=== PATIENT | male | born 1990 | race Two or more races ===

== ENCOUNTER 2022-08-05 08:33 | Emergency (ER) | payer BC, OTHER ==
[~2022-08-05] VITALS: Ht 177.8 cm; Wt 88.0 kg
--- NOTE | 2022-08-05 08:40 | NUR ---
RECEIVED PT 31 yrs male from home c/o lt side abdminale pain with n/v skin warm and dry to touch hx kidney stone
--- NOTE | 2022-08-05 08:46 | NUR ---
URINE SAMPLE COLLECTED AND SENT TO LAB
--- NOTE | 2022-08-05 08:50 | NUR ---
INSERTED ANGO CATHETER G 18 BLOOD DROW AND SENT TO LAB
[2022-08-05] MEDS ORDERED: IV NS 0.9% 1,000 ML BAG IV ONE (09:00)
[2022-08-05] MEDS ORDERED: KETOROLAC TROMETHAMINE INJ 30 MG/ML VIAL IV ONE (09:00)
[2022-08-05] MEDS ORDERED: KETOROLAC TROMETHAMINE INJ 30 MG/ML VIAL ONE (09:01)
--- NOTE | 2022-08-05 09:10 | NUR ---
SEEN BY DR. LAW ROME WITH PT PLAN OF CARE
[2022-08-05 09:18] LABS: BASOPHILS # (AUTO) 0.1 K/uL (0.0-0.2); BASOPHILS % (AUTO) 1.1 % (0.0-2.0); EOSINOPHILS % (AUTO) 1.8 % (0.0-6.0); HEMATOCRIT 42 % (39-51); HEMOGLOBIN 14.2 g/dL (13.5-17.5); LYMPHOCYTES # (AUTO) 2.1 K/uL (0.8-4.8); LYMPHOCYTES % (AUTO) 33.2 % (20.0-44.0); MEAN CORPUSCULAR HGB CONC 34 g/dl (31.0-36.0); MEAN CORPUSCULAR VOLUME 89 fL (80-96); MONOCYTES # (AUTO) 0.5 K/uL (0.1-1.30); MONOCYTES % (AUTO) 8.4 % (2.0-12.0); NEUTROPHILS # (AUTO) 3.5 K/uL (1.8-8.9); NEUTROPHILS % (AUTO) 55.5 % (43.0-81.0); PLATELET COUNT (AUTO) 227 K/uL (150-450); RED BLOOD CELL COUNT(AUTO) 4.66 MIL/uL (4.5-6.0); WHITE BLOOD COUNT (AUTO) 6.3 K/uL (4.3-11.0)
[2022-08-05 09:21] LABS: BILIRUBIN,URINE NEGATIVE (NEGATIVE); COLOR,URINE YELLOW (YELLOW); LEUKOCYTE ESTERASE ,URINE NEGATIVE (NEGATIVE); NITRITE, URINE NEGATIVE (NEGATIVE); PH,URINE 6.5 (5.0-8.0); PROTEIN,URINE NEGATIVE (NEGATIVE); UGLUCOSE NEGATIVE (NEGATIVE)
[2022-08-05 09:23] LABS: WBC,URINE 0-2 /HPF (0-3)
[2022-08-05 09:24] LABS: BACTERIA,URINE Rare /HPF (None Seen); SQUAMOUS EPITHELIAL CELL,UR Few /HPF (None Seen)
[2022-08-05 09:30] LABS: CALCIUM, SERUM 9.1 mg/dL (8.5-10.1); CREATININE 1.2 mg/dL (0.6-1.3); POTASSIUM 4.1 mmol/L (3.5-5.1)
[2022-08-05 09:36] LABS: ALBUMIN 3.9 g/dL (3.4-5.0); BILIRUBIN,DIRECT 0.2 mg/dL (0.0-0.2); BILIRUBIN,TOTAL 0.7 mg/dL (0.2-1.0); TOTAL PROTEIN, SERUM 7.5 g/dL (6.4-8.2)
--- NOTE | 2022-08-05 09:58 | NUR ---
RESTING AND COMFORTABLE AT THIS TIME
[2022-08-05] MEDS ORDERED: TAMS-12 PO (10:23)
[2022-08-05] MEDS ORDERED: KETO10TA2 PO (10:23)
[2022-08-05] MEDS ORDERED: ONDA4TAB11 PO (10:23)
--- NOTE | 2022-08-05 10:40 | NUR ---
AT BED SIDE SPOOK WITH PT PLAN OF care
--- NOTE | 2022-08-05 10:50 | NUR ---
IV removed. Catheter intact and site benign. Pressure and 4x4 applied to site. No bleeding noted.
--- NOTE | 2022-08-05 10:52 | NUR ---
Patient discharged to home in stable condition. Written and verbal after care instructions given. Patient verbalizes understanding of instruction.
[2022-08-05 11:02] VITALS: BP 116/72
== END 2022-08-05 11:04 | disposition home or self-care (01) ==
LOC: ER 08:38
DX: N23 Unspecified renal colic (principal); Z87.442 Personal history of urinary calculi
CPT/HCPCS: 99285; 74176; 96374; 96361; 85025; 80048; 83690; 80076; 81001; 36415; J1885; J7030

== ENCOUNTER 2024-10-09 12:28 | Emergency (ER) | payer OTHER ==
[~2024-10-09] VITALS: Ht 177.8 cm; Wt 82.6 kg
[~2024-10-09 12:28] MED LIST: KETO10TA2 PO; ONDA4TAB11 PO; TAMS-12 PO
[2024-10-09 12:34] VITALS: TEMP 98
[2024-10-09 12:56] LABS: APPEARANCE,URINE CLEAR (CLEAR); BLOOD, URINE 3+ Ery/uL (NEGATIVE); LEUKOCYTE ESTERASE ,URINE NEGATIVE (NEGATIVE); NITRITE, URINE NEGATIVE (NEGATIVE); UGLUCOSE NEGATIVE (NEGATIVE)
[2024-10-09 13:01] LABS: PLATELET COUNT (AUTO) 250 K/uL (150-450); RED BLOOD CELL COUNT(AUTO) 5.20 MIL/uL (4.5-6.0); WHITE BLOOD COUNT (AUTO) 7.3 K/uL (4.3-11.0)
[2024-10-09] MEDS ORDERED: ONDANSETRON HCL/PF 4 MG/2 ML VIAL ONE (13:05)
[2024-10-09] MEDS ORDERED: MORPHINE SULFATE INJ 4 MG/ML DISP.SYRIN ONE (13:06)
[2024-10-09] MEDS ORDERED: KETOROLAC TROMETHAMINE INJ 30 MG/ML VIAL ONE (13:06)
[2024-10-09] MEDS: IV NS 0.9% 1,000 ML BAG IV ONE (13:10)
[2024-10-09] MEDS: ONDANSETRON HCL/PF 4 MG/2 ML VIAL IVP ONE (13:15)
[2024-10-09] MEDS: KETOROLAC TROMETHAMINE INJ 30 MG/ML VIAL IV ONE (13:15)
[2024-10-09] MEDS: MORPHINE SULFATE INJ 2 MG/ML DISP.SYRIN IV ONE (13:16)
[2024-10-09 13:21] LABS: RED CELL DISTRIBUTION WIDTH 12.8 % (11.5-15.0)
[2024-10-09 13:32] LABS: CALCIUM, SERUM 8.9 mg/dL (8.5-10.1); CREATININE 1.2 mg/dL (0.6-1.3); SODIUM SERUM 136.0 mmol/L (136-145); UREA NITROGEN, BLOOD 20.0 mg/dL (7-18)
[2024-10-09 13:52] LABS: ADD URINE CULTURE NO; CALCIUM OXALATE CRYSTALS,UR Moderate /HPF (None Seen); SQUAMOUS EPITHELIAL CELL,UR Few /HPF (None Seen)
[2024-10-09] MEDS ORDERED: OXYC-128 PO (13:52)
[2024-10-09] MEDS ORDERED: IBUP-1957 PO (13:52)
[2024-10-09 14:10] VITALS: BP 130/85; O2SAT 99
== END 2024-10-09 14:10 | disposition home or self-care (01) ==
LOC: ER 12:39
DX: N20.0 Calculus of kidney (principal); Z79.1 Long term (current) use of non-steroidal anti-inflammatories (NSAID); Z87.442 Personal history of urinary calculi; Z79.899 Other long term (current) drug therapy
CPT/HCPCS: 99285; 96374; 76770; 96375; 96361; 85025; 80048; 81001; 36415; J1885; J2270; J2405; J7030

== ENCOUNTER 2024-10-12 15:05 | Emergency (ER) | payer OTHER ==
[~2024-10-12] VITALS: Ht 177.8 cm; Wt 82.6 kg
[~2024-10-12 15:05] MED LIST changes: +IBUP-1957 PO
[2024-10-12] MEDS: IV NS 0.9% 1,000 ML BAG IV ONE ×2 (17:14→17:55)
[2024-10-12] MEDS: ONDANSETRON HCL/PF 4 MG/2 ML VIAL IV ONE (17:15)
[2024-10-12] MEDS: KETOROLAC TROMETHAMINE 15 MG/ML VIAL IV ONE (17:15)
[2024-10-12 17:19] LABS: PLATELET COUNT (AUTO) 219 K/uL (150-450); RED BLOOD CELL COUNT(AUTO) 4.77 MIL/uL (4.5-6.0); RED CELL DISTRIBUTION WIDTH 12.9 % (11.5-15.0); WHITE BLOOD COUNT (AUTO) 12.6 K/uL (4.3-11.0)
[2024-10-12] MEDS ORDERED: IOHEXOL-300 100 ML VIAL IV ONE (17:23)
[2024-10-12] MEDS ORDERED: IV NS 0.9% 250 ML IV ONE (17:23)
[2024-10-12 17:26] LABS: APPEARANCE,URINE CLEAR (CLEAR); BLOOD, URINE TRACE-INTA Ery/uL (NEGATIVE); LEUKOCYTE ESTERASE ,URINE NEGATIVE (NEGATIVE); NITRITE, URINE NEGATIVE (NEGATIVE); UGLUCOSE NEGATIVE (NEGATIVE)
[2024-10-12 17:28] LABS: ADD URINE CULTURE NO
[2024-10-12 17:29] LABS: SQUAMOUS EPITHELIAL CELL,UR 0-2 /HPF (None Seen)
[2024-10-12 17:39] LABS: ASPARTATE AMINOTRANSFERASE 17.0 U/L (15-37); CREATININE 1.2 mg/dL (0.6-1.3); SODIUM SERUM 138.0 mmol/L (136-145); TOTAL PROTEIN, SERUM 7.4 g/dL (6.4-8.2); UREA NITROGEN, BLOOD 20.0 mg/dL (7-18)
[2024-10-12 17:45] LABS: CALCIUM, SERUM 8.8 mg/dL (8.5-10.1)
[2024-10-12] MEDS ORDERED: ONDA4TAB11 PO (19:54)
[2024-10-12] MEDS ORDERED: KETO10TA2 PO (19:54)
[2024-10-12] MEDS ORDERED: TAMS-12 PO (19:54)
[2024-10-12 20:03] VITALS: BP 131/78; TEMP 98.3; O2SAT 98
== END 2024-10-12 20:03 | disposition home or self-care (01) ==
LOC: ER 15:14
DX: N20.0 Calculus of kidney (principal); Z79.1 Long term (current) use of non-steroidal anti-inflammatories (NSAID); Z79.899 Other long term (current) drug therapy
CPT/HCPCS: 99285; 74177; 96360; 96361; 85025; 80048; 83690; 80076; 81001; 36415; J7030; J7050; Q9967